=== PATIENT | female | born 1975 | race Caucasian/White ===

== ENCOUNTER 2021-12-02 08:44 | Outpatient (REF) | payer OTHER, MEDICAID, SELFPAY | END 2021-12-02 08:45 | disposition home or self-care (01) | LOC: HO.HMGCLDS 08:44 | PROVIDERS: Visit Provider Internal Medicine | DX: Z20.822 Contact with and (suspected) exposure to COVID-19 (principal) | CPT/HCPCS: C9803; U0003; U0005 ==

== ENCOUNTER 2024-02-02 09:47 | Outpatient (REF) | payer MEDICARE, MEDICAID, SELFPAY ==
--- NOTE | ~2024-02-02 | XR_ITS ---
EXAMINATION: XR BILATERAL KNEES CLINICAL INFORMATION: Pain in bilateral knees. COMPARISON: None available. TECHNIQUE: AP standing, lateral and sunrise views of each knee. FINDINGS: Left Knee: Trace suprapatellar effusion. Mild medial compartment narrowing. Tiny lateral marginal and posterior patellar spurs. Right Knee: Trace suprapatellar effusion. Mild medial compartment space loss. Tiny tricompartmental osteophytes. XR/XR knee RT 3V IMPRESSION: Mild degenerative changes in the bilateral knees.
--- NOTE | ~2024-02-02 | XR_ITS ---
EXAMINATION: XR BILATERAL KNEES CLINICAL INFORMATION: Pain in bilateral knees. COMPARISON: None available. TECHNIQUE: AP standing, lateral and sunrise views of each knee. FINDINGS: Left Knee: Trace suprapatellar effusion. Mild medial compartment narrowing. Tiny lateral marginal and posterior patellar spurs. Right Knee: Trace suprapatellar effusion. Mild medial compartment space loss. Tiny tricompartmental osteophytes. XR/XR knee LT 3V IMPRESSION: Mild degenerative changes in the bilateral knees.
== END 2024-02-02 09:48 | disposition home or self-care (01) ==
LOC: HO.HOSX 09:47
PROVIDERS: Visit Provider Orthopaedic Surgery
DX: M25.562 Pain in left knee (principal); M25.561 Pain in right knee
CPT/HCPCS: 73562; 99202

== ENCOUNTER 2024-02-02 10:33 | Outpatient (AMB) | payer MEDICARE, MEDICAID, SELFPAY ==
--- NOTE | 2024-02-02 10:41 | A.OFFVIS_ITS ---
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 Patient reports her pain has been going on for about 3 years and is a 7 on the 1-10 pain scale. She states her Left is worse and has been taking ibprofen for the pain. She states she fell on her Right knee on August 2021. She has had cortisone injections in the past which gave her no relief. She has not had a viscosupplementation injection. She has done physical therapy exercises which aggravated her pain. She wishes to hold off on surgery for as long as possible. Allergies amoxicillin [From AUGMENTIN] Allergy (Severe, Verified 02/02/24 10:53) ANAPHYLAXIS/ITCHING clavulanic acid [From AUGMENTIN] Allergy (Severe, Verified 02/02/24 10:53) ANAPHYLAXIS/ITCHING codeine [CODEINE] Allergy (Unknown, Verified 02/02/24 10:53) UNKNOWN From DEMEROL Adverse Reaction (Unknown, Uncoded 08/14/20 17:16) VOMITING [facility] Surgical History (Updated 02/02/24 @ 11:03 by Khloe Collier CMA) Hx of section (Unknown) History of surgery on right wrist (Unknown) Social History (Updated 02/02/24 @ 10:54 by Khloe Collier CMA) Tobacco use type: Smokeless Tobacco Current occupational status: disabled Current occupation: Right hand dominate Physical Exam Vital Signs: BMI result Body Mass Index 51.1 Const Other: Well-nourished well-developed very friendly female awake alert and oriented x3 in no acute distress Extrem Other: Bilateral lower extremity examination shows good capillary refill, no skin lesions noted, normal sensation light touch Bilateral knee examination shows minimal effusions, mild crepitus with range of motion, no instability Results Reviewed Results Reviewed: X-rays of the patient's bilateral knee show mild joint space narrowing, no acute bony abnormalities Assessment & Plan Assessment & Plan (1) Right knee pain: Code(s): M25.561 - Pain in right knee (2) Left knee pain: Code(s): M25.562 - Pain in left knee Plan Ms. Magaña presents with bilateral knee pains due to degenerative joint disease. I had a lengthy discussion with the patient regarding the treatment options. She has not gotten good relief from cortisone injections in the past. Thus, I will see whether not the patient's insurance company will cover a viscosupplementation injection for both of her knees. I will see her back once the injections are available. She will follow-up as instructed. I spent 22 minutes in reviewing the patient's records and imaging studies, seeing the patient and documenting in the medical record. Orders: Orders XR knee LT 3V Today M25.562 - Pain in left knee XR knee RT 3V Today M25.561 - Pain in right knee Coding Level of Care Code New Pt Level 2 (76303) Diagnoses Right knee pain M25.561 Left knee pain M25.562
[2024-02-02 10:49] VITALS: BMI 51.1
== END 2024-02-02 11:12 | disposition home or self-care (01) ==
PROVIDERS: Visit Provider Orthopaedic Surgery
DX: M25.561 Pain in right knee (principal); M25.562 Pain in left knee
CPT/HCPCS: 99202